=== PATIENT | male | born 1965 | race African-American/Black ===

== ENCOUNTER 2017-03-17 19:30 | Emergency (ER) | payer SELFPAY ==
[~2017-03-17] VITALS: Ht 175.3 cm; Wt 84.1 kg
[~2017-03-17 19:30] MED LIST: CEPH500C3 PO; SULF-154 PO; Z.0.NO CURRENT MEDS
[2017-03-17 19:31] VITALS: BP 133/63; PULSE 79; RESP 16; TEMP 98.4; O2SAT 97
[2017-03-17] MEDS ORDERED: CEPHALEXIN MONOHYDRATE 500 MG CAP PO ONE (22:30)
[2017-03-17] MEDS ORDERED: IBUP1TAB7 PO (22:35)
[2017-03-17] MEDS ORDERED: CEPH-460 PO (22:35)
--- NOTE | 2017-03-17 22:35 | PD ---
HPI Chief Complaint: Laceration/Skin Injury Time Seen by Provider: 21:21 Travel History International Travel<30 days: No Contact w/Intl Traveler<30days: No Traveled to known affect area: No History of Present Illness HPI Patient is a 51-year-old male presenting to emergency department evaluation of a laceration to his left third and fourth fingers. Patient states he was using a saw at work when it slipped and cut his fingers. He denies any loss of function, he states he thought he could get the bleeding stopped but it continued to bleed so he presented to the emergency department. He reports his pain is a 4 out of 10 and states it's sore and throbbing. He denies any other injury. Injury onset was sudden. No alleviating factors, pain is exacerbated with movement. Patient's tetanus vaccine is up-to-date. PFSH Past Medical History Bipolar Disorder: Yes Depression: Yes Diminished Hearing: No Schizophrenia: Yes Past Surgical History Abdominal Surgery: Yes ( BILATERAL HERNIA REPAIR 1979) Genitourinary Surgery: Yes (BILATERAL HERNIA REPAIR) Social History Alcohol Use: No Tobacco Use: Yes (02/24- PPD) Substance Use: No Allergies-Medications (Allergen,Severity, Reaction): Coded Allergies: No Known Allergies (Verified , 06/17/07) Reported Meds & Prescriptions Reported Meds & Active Scripts Active Septra Ds (Trimethoprim/Sulfamethoxazole) Tab 1 Tab PO BID Keflex (Cephalexin Monohydrate) 500 Mg Cap 500 Mg PO BID Reported No Current Meds (Miscellaneous Medication) Misc Review of Systems Except as stated in HPI: all other systems reviewed are Neg Skin: Positive Other (laceration) Physical Exam Narrative GENERAL: Well-developed, well-nourished, alert male. Resting in no acute distress. SKIN: Warm and dry. 1.5 cm superficial lacerations to the third and fourth fingers over the PIP joint on the third finger and DIP joint on the fourth finger on the dorsal aspect. HEAD: Atraumatic. Normocephalic. EYES: Pupils equal and round. No scleral icterus. No injection or drainage. ENT: No nasal bleeding or discharge. Mucous membranes pink and moist. NECK: Trachea midline. No JVD. CARDIOVASCULAR: Regular rate and rhythm. RESPIRATORY: No accessory muscle use. Clear to auscultation. Breath sounds equal bilaterally. GASTROINTESTINAL: Abdomen soft, non-tender, nondistended. Hepatic and splenic margins not palpable. MUSCULOSKELETAL: Extremities without clubbing, cyanosis, or edema. No obvious deformities. Full range of motion in right hand and fingers. Patient is neurovascularly intact. NEUROLOGICAL: Awake and alert. No obvious cranial nerve deficits. Motor grossly within normal limits. Five out of 5 muscle strength in the arms and legs. Normal speech. PSYCHIATRIC: Appropriate mood and affect; insight and judgment normal. Data Data Last Documented VS Vital Signs Date Time Temp Pulse Resp B/P (MAP) Pulse Ox O2 Delivery O2 Flow Rate FiO2 03/17/17 19:31 98.4 79 16 133/63 (86) 97 Room Air Orders Orders Cephalexin (Keflex) (03/17/17 22:30) Ed Discharge Order (03/17/17 22:28) [facility] Medical Decision Making Medical Screen Exam Complete: Yes Emergency Medical Condition: Yes Interpretation(s) Vital Signs Date Time Temp Pulse Resp B/P (MAP) Pulse Ox O2 Delivery O2 Flow Rate FiO2 03/17/17 19:31 98.4 79 16 133/63 (86) 97 Room Air Differential Diagnosis Abrasion versus laceration versus puncture versus other Narrative Course Patient sent in for evaluation of lacerations to his fingers after cleaning them with a saw at work. This happened this afternoon. Patient is neurovascularly intact, there are no focal deficits noted on exam. Please see procedure report for laceration repair. Patient will be given Keflex prophylactically. The wound was opened for several hours prior to having it repaired. Patient was advised on signs and symptoms of infection. He was encouraged return immediately for any new or worsening symptoms. He was advised the stitches will need to be removed in 10 days. He can return to emergency department follow-up with his primary doctor. Patient verbalized understanding of instructions. Patient stable for discharge. Procedures Procedure Narrative LACERATION LOCATION: Left third finger on the dorsal aspect over the PIP joint LENGTH: 1.5 cm NUMBER OF STITCHES/JAMES: 4 stitches REPAIR: The area of the laceration was prepped with Betadine and sterilely draped. The laceration was infiltrated with 1% lidocaine. The wound was copiously irrigated and explored without evidence of foreign body, tendon injury or neurovascular injury. The wound was closed using 5-0 Ethilon. This was a 1 layer repair. A sterile dressing was applied. The patient was advised to keep the dressing clean and dry. Patient tolerated the procedure well. LACERATION LOCATION: Left fourth finger on the dorsal aspect over the DIP joint LENGTH: 1.5 cm NUMBER OF STITCHES/JAMES: 4 stitches REPAIR: The area of the laceration was prepped with Betadine and sterilely draped. The laceration was infiltrated with 1% lidocaine. The wound was copiously irrigated and explored without evidence of foreign body, tendon injury or neurovascular injury. The wound was closed using 5-0 Ethilon. This was a 1 layer repair. A sterile dressing was applied. The patient was advised to keep the dressing clean and dry. Patient tolerated the procedure well. Diagnosis Primary Impression: Laceration of finger Qualified Codes: S61.219A - Laceration without foreign body of unspecified finger without damage to nail, initial encounter Referrals: Primary Care Physician Patient Instructions: Care For Your Stitches (ED), Finger Laceration (ED), General Instructions Departure Forms: Tests/Procedures, Work Release Enter return to work date: Mar 18, 2017 Additional Instructions: Follow-up with your primary doctor This will need to be removed in 10 days, he can return to emergency department or follow-up with your primary doctor Complete course of antibiotics as prescribed Return to emergency department for new or worsening symptoms or signs of infection as discussed Keep stitches clean and dry, cover with dressing if there is a chance of soiling , do not submerge it in water Med/Other Pt SpecificInfo: Prescription(s) given Scripts Ibuprofen (Ibuprofen) 800 Mg Tab 800 MG PO Q6HR Y for PAIN, #40 TAB 0 Refills Prov: Melinda Shipley 03/17/17 Cephalexin (Keflex) 500 Mg Cap 500 MG PO Q12H for Infection for 7 Days, #14 CAP 0 Refills Prov: Melinda Shipley 03/17/17 Disposition: 01 DISCHARGE HOME Condition: Stable Melinda Shipley Mar 17, 2017 22:35
== END 2017-03-17 22:46 | disposition home or self-care (01) ==
LOC: NEPK 19:30
DX: S61.213A Laceration without foreign body of left middle finger without damage to nail, initial encounter (principal); S61.215A Laceration without foreign body of left ring finger without damage to nail, initial encounter; W27.0XXA Contact with workbench tool, initial encounter; Y99.0 Civilian activity done for income or pay; F31.9 Bipolar disorder, unspecified; F20.9 Schizophrenia, unspecified; F17.200 Nicotine dependence, unspecified, uncomplicated
CPT/HCPCS: 12002